=== PATIENT | female | born 1990 | race American Indian/Alaskan Native ===

== ENCOUNTER 2019-11-20 18:40 | Emergency (ER) | payer MEDICAID ==
[2019-11-20 19:36] VITALS: BP 106/74
--- NOTE | 2019-11-20 20:08 | XRay Report ---
CHEST PA AND LATERAL VIEWS INDICATION: chestpain. COMPARISON: None. FINDINGS: Support devices: None. Heart: Within normal limits. Lungs/Pleura: No acute pulmonary or pleural findings. IMPRESSION: 1. No acute findings. Signer Name: Иван Patterson MD Signed: 11/20/2019 8:04 PM Workstation Name: [id number]
[2019-11-20] MEDS ORDERED: FAMOTIDINE 20 MG TAB PO ONE (23:36)
[2019-11-20] MEDS ORDERED: ACETAMINOPHEN 500 MG TAB PO ONE (23:36)
--- NOTE | 2019-11-20 23:42 | Emergency Department Report ---
ED Chest Pain HPI - General Chief Complaint: Chest Pain Stated Complaint: CP Time Seen by Provider: 11/20/19 22:26 Source: patient Mode of arrival: Ambulatory Limitations: No Limitations - History of Present Illness Initial Comments: 28-year-old -[place] female presents to the emergency room complaining of different areas of chest pain x1 week with occasional cough. Patient reports her pains a 5-itis 10. Nothing makes it better nothing makes it worse. Patient denies any fever chills no nausea no vomiting no radiation of pain. Patient rep orts that the pain is midsternal. Patient states she is currently having pain at this time. She denies any acid reflux. She feels if she can burp it would help with her pain. Patient currently takes no meds has no known drug allergies no past medical history except for C-sections. MD Complaint: chest pain Onset/Timin -: week(s) Onset: during rest Pain Location: substernal Pain Radiation: none Severity scale (0 -10): 5 Quality: aching, sharp Improves With: nothing Worsens With: nothing re: denies: nausea, vomting, diaphoresis, dyspnea, sense of impending doom Other Symptoms: cough. denies: fever, syncope, rash, acid taste in mouth, leg swelling, palpitations, burping Treatments Prior to Arrival: none Aspirin use within the Past 7 Days: (0) No - Related Data On Oral Contraceptives: No (Tubes tied) Allergies Allergy/AdvReac Type Severity Reaction Status Date / Time No Known Allergies Allergy Unverified 11/20/19 19:26 Heart Score - HEART Score History: Slightly suspicious EKG: Normal Age: < 45 Risk factors: No known risk factors Troponin: < normal limit HEART Score: 0 ED Review of Systems ROS: Stated complaint: CP Other details as noted in HPI Comment: All other systems reviewed and negative ED Past Medical Hx - Past Medical History Previous Medical History?: No - Surgical History Past Surgical History?: Yes Additional Surgical History: C-sections X 4. - Social History Smoking Status: Never Smoker Substance Use Type: None ED Physical Exam - General Limitations: No Limitations General appearance: alert, in no apparent distress - Head Head exam: Present: atraumatic, normocephalic - Eye Eye exam: Present: normal appearance - ENT ENT exam: Present: mucous membranes moist - Neck Neck exam: Present: normal inspection - Respiratory Respiratory exam: Present: normal lung sounds bilaterally. Absent: respiratory distress - Cardiovascular Cardiovascular Exam: Present: regular rate, normal rhythm. Absent: systolic murmur, diastolic murmur, rubs, gallop - GI/Abdominal GI/Abdominal exam: Present: soft, normal bowel sounds - Extremities Exam Extremities exam: Present: normal inspection - Back Exam Back exam: Present: normal inspection - Neurological Exam Neurological exam: Present: alert, oriented X3 - Psychiatric Psychiatric exam: Present: normal affect, normal mood - Skin Skin exam: Present: warm, dry, intact, normal color. Absent: rash ED Course Vital Signs 11/20/19 19:24 Temperature 98.3 F Pulse Rate 85 Respiratory 18 Rate Blood Pressure 106/74 O2 Sat by Pulse 100 Oximetry JAS score - Jas Score Age > 65: (0) No Aspirin use within the Past 7 Days: (0) No 3 or more CAD Risk Factors: (0) No 2 or more Angina events in past 24 hrs: (0) No Known CAD with more than 50% Stenosis: (0) No Elevated Cardiac Markers: (0) No ST Deviation Greater than 0.5mm: (0) No JAS Score: 0 ED Medical Decision Making - Lab Data Result diagrams: 11/20/19 23:58 11/20/19 23:58 - Radiology Data Radiology results: report reviewed [facility] [address] [place] [address] XRay Report Signed Patient: ESPINOZA MEYER MR#: [id number] : 1990 Acct:[id number] Age/Sex: 28 / F ADM Date: 11/20/19 Loc: ED Attending Dr: Ordering Physician: ED MD FARHAD Date of Service: 11/20/19 Procedure(s): XR chest routine 2V Accession Number(s): [id number] cc: ED MD FARHAD Fluoro Time In Minutes: CHEST PA AND LATERAL VIEWS INDICATION: chestpain. COMPARISON: None. FINDINGS: Support devices: None. Heart: Within normal limits. Lungs/Pleura: No acute pulmonary or pleural findings. IMPRESSION: 1. No acute findings. Signer Name: Иван Patterson MD Signed: 11/20/2019 8:04 PM Workstation Name: [id number] Transcribed By: Dictated By: Иван Patterson MD Electronically Authenticated By: Иван Patterosn MD Signed Date/Time: 11/20/192003 DD/ 02 TD/TT: - Medical Decision Making 28-year-old -[place] female presents to the emergency room complaining of different areas of chest pain x1 week with occasional cough. Patient reports her pains a 5-itis 10. Nothing makes it better nothing makes it worse. Patient denies any fever chills no nausea no vomiting no radiation of pain. Patient r eports that the pain is midsternal. Patient states she is currently having pain at this time. She denies any acid reflux. She feels if she can burp it would help with her pain. Patient currently takes no meds has no known drug allergies no past medical history except for C-sections. EKG is normal, chest x-ray is normal will check a CBC, BMP and troponin. Patient will be given an acid famotidine and Tylenol for pain management. Critical care attestation.: If time is entered above; I have spent that time in minutes in the direct care of this critically ill patient, excluding procedure time. ED Disposition Clinical Impression: Atypical chest pain Disposition: DC-01 TO HOME OR SELFCARE Is pt being admited?: No Does the pt Need Aspirin: No Condition: Stable Instructions: Chest Pain (ED) Additional Instructions: Chest x-ray is negative for any acute findings. EKG is within normal limits. All labs are stable. I recommend taking either ibuprofen for pain management. You can try some [id number] Prilosec which is omeprazole. Follow-up with a primary care provider. Referrals: LJ ELIZALDE MD [Primary Care Provider] - 3-5 Days ROBERT NEWTON MD [Staff Physician] - 3-5 Days Forms: Work/School Release Form(ED)
[2019-11-21 00:31] LABS: BUN/Creatinine Ratio 14; Blood Urea Nitrogen 11 mg/dL (7-17); Calcium 9.5 mg/dL (8.4-10.2); Hemolysis Index 5
[2019-11-21 00:32] LABS: Basophils % (Auto) 0.7 % (0.0-1.8); Eosinophils # (Auto) 0.2 K/mm3 (0.0-0.4); Eosinophils % (Auto) 3.3 % (0.0-4.3); Hematocrit 31.2 % (30.3-42.9); Hemoglobin 10.5 gm/dl (10.1-14.3); Lymphocytes # (Auto) 2.1 K/mm3 (1.2-5.4); Lymphocytes % (Auto) 38.4 % (13.4-35.0); Mean Corpuscular HGB Conc 34 % (30-34); Mean Corpuscular Volume 79 fl (79-97); Monocytes # (Auto) 0.3 K/mm3 (0.0-0.8); Monocytes % (Auto) 5.5 % (0.0-7.3); Platelet Count 377 K/mm3 (140-440); Red Blood Count 3.95 M/mm3 (3.65-5.03); Red Cell Distribution Width 14.4 % (13.2-15.2)
== END 2019-11-21 01:38 | disposition home or self-care (01) ==
LOC: ED 18:40
DX: R07.89 Other chest pain (principal); R05 Cough; Z98.890 Other specified postprocedural states
CPT/HCPCS: 36415; 71046; 80048; 84484; 85025; 93005